=== PATIENT | male | born 1985 | race Two or more races ===

== ENCOUNTER 2018-05-15 23:07 | Emergency (ER) | payer SELFPAY ==
[2018-05-15 23:19] VITALS: BP 136/84; PULSE 86; RESP 18; TEMP 97.8; O2SAT 100
--- NOTE | 2018-05-16 00:07 | ED PDOC ---
HPI: General Adult Time Seen by Provider: 05/15/18 23:31 Chief Complaint (Nursing): Medical Clearance Chief Complaint (Provider): Medical Clearance History Per: Patient, Other ([facility]) History/Exam Limitations: no limitations Additional Complaint(s): 32 year old male presents to the ED via [facility] for medical clearance. Patient has a forehead abrasion associated headache and dizziness. He denies any neck pain, nausea, vomiting, diarrhea, or loss of consciousness. PD confirmed patient had no loss of consciousness. Patient admits to drinking alcohol, initially stating he had a lot. He then changed his story, reporting he only had one shot. 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 No further complaints. Patient has been in this ED x3 previous times for clearance. PMD: none provided Past Medical History Reviewed: Historical Data, Nursing Documentation, Vital Signs Vital Signs: Last Vital Signs Temp 97.8 F 05/15/18 23:14 Pulse 86 05/15/18 23:14 Resp 18 05/15/18 23:14 BP 136/84 05/15/18 23:14 Pulse Ox 100 05/15/18 23:14 - Medical History PMH: No Chronic Diseases - Surgical History Surgical History: No Surg Hx - Family History Family History: States: Unknown Family Hx - Social History Current smoker - smoking cessation education provided: No Ex-Smoker (has not smoked in the last 12 months): No Alcohol: Other (yes) Drugs: Denies - Allergies Allergies/Adverse Reactions: Allergies Allergy/AdvReac Type Severity Reaction Status Date / Time No Known Allergies Allergy Verified 05/15/18 23:14 Review of Systems ROS Statement: Except As Marked, All Systems Reviewed And Found Negative Gastrointestinal: Negative for: Nausea, Vomiting, Diarrhea Musculoskeletal: Negative for: Neck Pain Skin: Positive for: Other (forehead and finger abrasion ) Neurological: Positive for: Headache, Dizziness Psych: Negative for: Suicidal ideation Physical Exam - Reviewed Nursing Documentation Reviewed: Yes Vital Signs Reviewed: Yes - Physical Exam Appears: Positive for: No Acute Distress Skin: Positive for: Normal Color, Warm, Dry Eye Exam: Positive for: Normal appearance (patient only has one eye) Neck: Positive for: Normal Cardiovascular/Chest: Positive for: Regular Rate, Rhythm. Negative for: Murmur Respiratory: Positive for: Normal Breath Sounds. Negative for: Respiratory Distress Gastrointestinal/Abdominal: Positive for: Normal Exam, Soft. Negative for: Tenderness Extremity: Positive for: Normal ROM (upper and lower). Negative for: Deformity Neurologic/Psych: Positive for: Alert, Oriented (x3) Comments: FINGER: 0.5 cm well healing abrasion with no active bleeding. FOREHEAD: smal 1 cm abrasion to forehead, underlying ecchymosis and swelling, no active bleeding. - ECG O2 Sat by Pulse Oximetry: 100 (RA) Pulse Ox Interpretation: Normal Medical Decision Making Medical Decision Making: Time: 2236 Medical clearance, patient has two abrasions, one on right finger and forehead. Both were cleaned and dressed. Patient has no neurological deficits, no need for medical workup. Patients vitals are stable and he is calm and cooperative. Plan: --crisis evaluation --labs Time: 104 --patient evaluated by Crisis/psychiatry. Patient cleared under Dr. Solo, diagnosis adjustment disorder. Patient is medically and psychiatrically optimized for discharge to [facility]. Scribe Attestation: Documented by Amara Lovell, acting as a scribe for Cecily Tomas MD. Provider Scribe Attestation: All medical record entries made by the Scribe were at my direction and personally dictated by me. I have reviewed the chart and agree that the record accurately reflects my personal performance of the history, physical exam, medical decision making, and the department course for this patient. I have also personally directed, reviewed, and agree with the discharge instructions and disposition. Disposition - Clinical Impression Clinical Impression: Head injury due to trauma, Abrasion head - Disposition Disposition: Routine/Home Disposition Time: 01:00 Condition: STABLE Additional Instructions: Mr. Lama is medically and psychiatrically cleared for release to [facility] custody. No medical or psychiatric intervention needed at this time. Keep wounds clean and dry and take Tylenol for pain. Follow up with primary medical doctor as needed. Instructions: General (DC) Forms: [facility] (Italian) Print Language: [id number]
== END 2018-05-16 01:39 ==
LOC: H.ER 23:07
DX: S00.81XA Abrasion of other part of head, initial encounter (principal); F43.20 Adjustment disorder, unspecified; Z00.8 Encounter for other general examination; Z87.891 Personal history of nicotine dependence